=== PATIENT | female | born 1955 | race Caucasian/White ===

== ENCOUNTER 2016-07-03 11:08 | Emergency (ER) | payer OTHER ==
[~2016-07-03] VITALS: Ht 157.5 cm; Wt 74.0 kg
[2016-07-03 11:14] VITALS: Ht 157.5 cm; Wt 74.0 kg
[2016-07-03] MEDS ORDERED: ALBU8.5H3 INH (14:00)
[2016-07-03] MEDS ORDERED: AZIT250T94 PO (14:00)
[2016-07-03] MEDS ORDERED: CETI10CA PO (14:01)
[2016-07-03] MEDS ORDERED: BENZ100C70 PO (14:02)
--- NOTE | 2016-07-03 14:37 | ERD ---
ER Documentation Chief Complaint Date/Time DATE: 07/03/16 TIME: 14:34 Chief Complaint Complains of a cough x 3 weeks HPI Patient is a 60-year-old female who presents to the ED with cough for 3 weeks. She states that she also has had nasal congestion. She denies shortness of breath or difficulty breathing. She denies hemoptysis or night sweats. She denies fevers or chills. She denies leg pain or swelling. She denies abdominal pain, nausea, vomiting or diarrhea. She states that her friend from [place] had similar symptoms. She denies headache or dizziness. She denies neck pain or stiffness. She has tried Mucinex and Motrin for his symptoms. No other medications and no other complaints. ROS All systems reviewed and are negative except as per history of present illness. Medications Home Meds Active Scripts Benzonatate* (Tessalon Perle*) 100 Mg Capsule, 100 MG PO Q8H Y for COUGH for 14 Days, CAP Prov:RANDI ROSENTHAL PA-C 07/03/16 Cetirizine Hcl* (Zyrtec*) 10 Mg Capsule, 10 MG PO DAILY, #30 TAB.CHEW Prov:RANDI ROSENTHAL PA-C 07/03/16 Albuterol Sulfate* (Proair HFA*) 8.5 Gm Hfa.aer.ad, 2 PUFF INH Q4, #1 INHALER Prov:RANDI ROSENTHAL-C 07/03/16 Azithromycin* (Zithromax*) 250 Mg Tablet, 250 MG PO .ZPACK DIRECTED, #6 TAB TAKE 500 MG (2 TABS) THE FIRST DAY THEN 250 MG (1 TAB) DAYS 2-5 Prov:RANDI ROSENTHAL-C 07/03/16 Allergies Allergies: Coded Allergies: No Known Allergy (Unverified , 07/03/16) PMhx/Soc Medical and Surgical Hx: pt denies Medical Hx, pt denies Surgical Hx History of Surgery: No Anesthesia Reaction: No Hx Neurological Disorder: No Hx Respiratory Disorders: No Hx Cardiac Disorders: No Hx Psychiatric Problems: No Hx Miscellaneous Medical Probl: No Hx Alcohol Use: No Hx Substance Use: No Smoking Status: Current every day smoker Physical Exam Vitals Vital Signs Date Time Temp Pulse Resp B/P Pulse Ox O2 Delivery O2 Flow Rate FiO2 5/1/17 11:14 98.4 97 20 144/89 97 Physical Exam GENERAL: Well-developed, well-nourished female. Appears in no acute distress. HEAD: Normocephalic, atraumatic. EYES: Pupils are equally reactive bilaterally. EOMs grossly intact. No conjunctival erythema. ENT: Moist mucous membranes. No uvula deviation. No kissing tonsils. No exudates. NECK: Supple. No lymphadenopathy or thyromegaly. No meningismus. negative kernig. negative brudinski. LUNG: Clear to auscultation bilaterally. No rhonchi, wheezing, rales or coarse breath sounds. HEART: Regular rate and rhythm. No murmurs, rubs or gallops. Extremities: Equal pulses bilaterally. No peripheral clubbing, cyanosis or edema. No unilateral leg swelling. NEUROLOGIC: Alert and oriented. Moving all four extremities. 5/5 strength in all extremities. Normal speech. Steady gait. SKIN: Normal color. Warm and dry. No rashes or lesions. Capillary refill < 2 seconds Procedures/MDM ER COURSE: I kept the patient and/or family informed of laboratory and diagnostic imaging results throughout the emergency room course. MEDICAL DECISION MAKING: This is a 60-year-old female who presents with cough, congestion 3 weeks. Vital signs were reviewed. Patient is afebrile. Patient is not hypoxic. Patient is not toxic or ill-appearing. Patient has a pulse of 97 and a blood pressure 144/89. Her oxygen saturation is 97. Patient likely has bronchitis. Due to patient's age and time of symptoms, I will treat the patient with azithromycin. I do not think a chest x-ray is warranted at this time as patient 's lung examination is within normal limits and does not show signs of respiratory distress. Low suspicion for pneumonia, PE, pneumothorax, ACS, epiglottitis, obstruction, TB, pertussis, meningitis, sepsis. DISCHARGE: At this time, patient is stable for discharge and outpatient management with no new complaints during the ER course. Patient was sent home with azithromycin, Tesgabion Jacobyes, Zyrtec and ProAir air. Patient will be discharged home with instructions to recheck for new or worsening symptoms such as fever, nausea, weakness, LOC and to follow up with primary care in the next 1-2 days. Patient was advised to return to the ER for any new or worsening symptoms. Plan was discussed and patient and/or family understands and agrees. Home instructions were given. Departure Diagnosis: Primary Impression: Cough Condition: Stable Patient Instructions: Cough, Chronic, Uncertain Cause, (Adult) Additional Instructions: Call your primary care doctor TOMORROW for an appointment during the next 1-2 days.See the doctor sooner or return here if your condition worsens before your appointment time. RANDI ROSENTHAL PA-C July 03, 2016 14:37
== END 2016-07-03 14:20 | disposition home or self-care (01) ==
LOC: FTE 11:08
DX: R05 Cough (principal); F17.210 Nicotine dependence, cigarettes, uncomplicated
CPT/HCPCS: 99284

== ENCOUNTER 2017-09-18 17:37 | Emergency (ER) | END 2017-09-18 22:14 | disposition home or self-care (01) ==